=== PATIENT | female | born 1985 | race Caucasian/White ===

== ENCOUNTER 2016-08-09 15:01 | Emergency (ER) | payer SELFPAY ==
[2016-08-09] MEDS ORDERED: KETOROLAC TROMETHAMINE 10 MG TAB PO ONE (15:50)
--- NOTE | 2016-08-09 15:55 | EDPRACDOC ---
- General Stated Complaint: RT SIDE RIB PAIN/RT HIP/FELL YESTERDAY Time Seen by Provider: 08/09/16 15:45 - History of Present Illness Onset: 1 HPI: PT STATES SLIPPED ON WET STEPS FELL HURT RIGHT RIBS AND RIGHT HIP. STATES GETS SHARP STABBING PAIN WHEN TAKING DEEP BREATH. PAIN RADIATES AROUND RIGHT HIP INTO GROIN WHEN BEARING WEIGHT BUT CAN STAND WITHOUT PROBLEMS. Pain Severity: Reports: Mild Injuries/Pain Location: Reports: chest (RIGHT RIB), lower extremity (RIGHT HIP AND GROIN) Reason for Fall: Reports: slipped Loss of Consciousness: no loss of consciousness Modifying Factors: improves with: movement Associated Symptoms (Fall): Reports: denies symptoms Allergies/Adverse Reactions: Allergies hydrocodone [Hydrocodone] Allergy (Unknown, Verified 12/24/14 06:44) Nausea/Vomiting Home Medications: Ambulatory Orders Esomeprazole Mag Trihydrate [Nexium] 20 mg PO DAILY 03/01/13 Vits W-Ca,Fe,FA(<1Mg) [] 1 each PO DAILY 03/01/13 Ibuprofen Tablet [Motrin] 800 mg PO TID #30 tab 12/25/14 Oxycodone Immediate Release [Oxy-Ir] 1 - 2 tab PO Q6H PRN #30 tab 12/25/14 Cyclobenzaprine HCl [Flexeril] 10 mg PO TID #10 tablet 08/09/16 Oxycodone Immediate Release [Oxycodone Immediate Release (OxyIR)] 5 mg PO Q6H PRN #10 tab 08/09/16 ED Past Medical History - History Reviewed Yes Nurses notes reviewed and agree except as marked Travel Outside of [place] in the Last 3 Months?: No - Patient Medical History Psychological History: Reports: Anxiety (treated with celexa in the past) Systemic History: Reports: Anemia (iron with pregancy). Denies: Cancer, Lupus - Family Medical History Denies: Hypertension, Diabetes, Cancer, Stroke, Cardiac Disorders - Social Medical History Smoking Status: Heavy tobacco smoker (5 or more cigarettes/day or daily pipe/ cigar) ETOH: None Substance Abuse: None Lives With: Other Lives In: Home EDM Review of Systems - Review of Systems ROS Negative Except as Marked: Yes All systems reviewed and were negative except as marked Constitutional: No Symptoms Reported. negative: Fever, Chills, Weakness, Fatigue, Loss of Appetite Eyes: No Symptoms Reported. negative: Redness, Blurred Vision, Double Vision, Discharge, Pain, Light Sensitive, Photophobia Ears: No Symptoms Reported. negative: Pain, Hearing Loss, Drainage, Ear Pulling Throat: No Symptoms Reported. negative: Pain, Swelling Nose: No Symptoms Reported. negative: Congestion, Bleeding, Discharge, Injection, Swelling, Deformity, Ecchymosis, Tender, Abrasion, Laceration Mouth: No Symptoms Reported. negative: Pain, Drooling Respiratory: No Symptoms Reported. negative: Cough, Brassy Cough, Barky Cough, Shortness of Breath, Wheezing, Hemoptysis Cardiovascular: No Symptoms Reported. negative: Chest Pain, Palpitations, Syncope, Edema, Orthopnea, PND, Skin Mottling, Cyanosis Gastrointestinal: No Symptoms Reported. negative: Pain, Constipation, Nausea, Vomiting, Diarrhea, Melena, Formula Intolerance Genitourinary: No Symptoms Reported. negative: Dysuria, Hematuria, Frequency, Discharge, Bleeding, Testicular Pain, Neurological: No Symptoms Reported. negative: Headache, Dizziness, Seizure, Numbness, Weakness, Speech Difficulty, Gait Difficulty Musculoskeletal: Chestwall (RT). negative: Arm, Ankle, Back, Elbow, Forearm, Femur, Foot, Hand, Hip, Knee, Leg, Neck, Pelvis, Ribs, Shoulder, Wrist Integumentary: No Symptoms Reported. negative: Itching, Rash, Bruising, Wound Allergic/Immunologic: No Symptoms Reported. negative: Hives, Itching Hematologic: No Symptoms Reported. negative: Lymphadenopathy, Easy Bruising, Easy Bleeding Endocrine: No Symptoms Reported. negative: Weight Gain, Weight Loss Psychiatric: No Symptoms Reported. negative: Anxiety, Depression, Hallucinations, Insomnia, Suicidal - Physical Exam Constitutional: No apparent distress, Alert (Awake) Oriented to: Time, Person, Place Last recorded Vital Signs: Oxygen Pulse Oxygen Saturation O2 Device Oxygen Flow Rate Fraction of Inspired Oxygen ( FIO2) - HEENT Head: Normal ( normocephalic) Eye Exam: Normal (PERRL, EOMI, Sclera white) Oropharynx: Normal (Pharynx:Moist without exudate,Gums-no swelling) Tympanic Membrane: Normal ENT EAC: Normal TMJ: Normal Nose: No Symptoms Reported (septum midline) Neck: Normal (FROM, trachea at midline) - Respiratory/Cardiovascular Respiratory: Normal - CTA (BBS clear to auscultation without adventitious sounds ) Cardiovascular: Normal (RRR without murmur, gallop or rub) - GI Auscultation: Normal (NABS) Palpation: Normal (Soft,No rebound or guarding, non distended) Tenderness: Non tender Beaver's Sign: Negative - Bladder: Normal - Musculoskeletal Back: Normal (Non-Tender) Extremities: Normal (Normal tone, Pulses 2+ No cyanosis or edema, FROM) Musculoskeletal Comment: RIGHT GROIN AND HIP TENDERNESS. PT CAN BEAR WEIGHT WITHOUT PROBLEMS AND IS CURRENTLY AMBULATING TO RADIOLOGY. - Integumentary Skin: Normal, Warm, Dry Lymphatics: Normal (no adenopathy) - Neurologic Memory Impaired: Normal Motor Function: Normal (Normal tone, Pulses 2+ No cyanosis or edema, FROM) Cranial Nerve: Normal (CN II-X11 intact sensation, strength 5/5) Cerebellar: Normal Mood Description: Normal Perception: Normal ED Injury/Fall Exam - Physical Exam Head Injury: no evidence of injury Extremity Exam: other (RIGHT HIP AND GROIN TENDERNESS, HAS FULL ROM AND STRENGTH EQUAL BILATERAL) Skin: Normal - [place] Coma Score Best Eye Response ([place]): (4) open spontaneously Best Verbal Response ([place]): (5) oriented Best Motor Response ([place]): (6) obeys commands [place] Total: 15 - Differential Diagnosis Contusion, Fall, Fracture, Mechanical Fall, Sprain, Strain - Diagnostic Imaging RIBS WITH CXR Image interpreted by: Radiologist IMPRESSION: Negative. Decision Time to Discharge: 16:16 - Departure Disposition: Home Condition: Stable Final Diagnosis: MECHANICAL FALL Contusion of rib on right side Qualifiers: Encounter type: initial encounter Qualified Code(s): S20.211A - Contusion of right front wall of thorax, initial encounter Strain of right hip Qualifiers: Encounter type: initial encounter Qualified Code(s): S76.011A - Strain of muscle, fascia and tendon of right hip, initial encounter Instructions: Rib Contusion (ED), Hip Sprain (ED) Education/Counseling Given To: Patient Education/Counseling Given Regarding: Diagnosis, Treatment, Prognosis, Follow Up Referrals: Rey Preston II, MD [Primary Care Provider] - One Week Prescriptions: Cyclobenzaprine HCl [Flexeril] 10 mg PO TID #10 tablet Oxycodone Immediate Release [Oxycodone Immediate Release (OxyIR)] 5 mg PO Q6H PRN #10 tab PRN Reason: Pain
--- NOTE | 2016-08-09 16:12 | DIRPT ---
CLINICAL DATA: Fall. Right lower rib pain. EXAM: RIGHT RIBS AND CHEST - 3+ VIEW COMPARISON: 07/09/2011 FINDINGS: No fracture or other bone lesions are seen involving the ribs. There is no evidence of pneumothorax or pleural effusion. Both lungs are clear. Heart size and mediastinal contours are within normal limits. IMPRESSION: Negative. Electronically Signed By: Regina Wallace M.D. On: 08/09/2016 16:09
[2016-08-09 16:33] VITALS: BMI 24.7
[2016-08-09 16:34] VITALS: BP 122/74; PULSE 79; TEMP 98.2
== END 2016-08-09 16:35 | disposition home or self-care (01) ==
LOC: EDMC 15:01
DX: S76.011A Strain of muscle, fascia and tendon of right hip, initial encounter (principal); S20.211A Contusion of right front wall of thorax, initial encounter; W10.9XXA Fall (on) (from) unspecified stairs and steps, initial encounter; F17.200 Nicotine dependence, unspecified, uncomplicated
CPT/HCPCS: 71101; 99283; J3490